=== PATIENT | female | born 1985 | race American Indian/Alaskan Native ===

== ENCOUNTER 2018-03-08 20:32 | Emergency (ER) | payer SELFPAY ==
[2018-03-08 21:18] VITALS: BP 124/89
[2018-03-08] MEDS ORDERED: TYLENOL ONE ×2 (22:08→22:09)
[2018-03-08] MEDS ORDERED: TYLENOL PO ONE (22:15)
== END 2018-03-09 01:35 | disposition left against medical advice (07) ==
LOC: ED 20:32
DX: K08.89 Other specified disorders of teeth and supporting structures (principal); Z53.21 Procedure and treatment not carried out due to patient leaving prior to being seen by health care provider